=== PATIENT | female | born 1975 | race Caucasian/White ===

== ENCOUNTER → 2016-08-30 | Outpatient (CLI) | payer BC ==
[~2016-08-30] MED LIST: CALC1CAP24 PO; CIPR1TAB11 PO; MULT-506 PO; NAPR1TAB9 PO; OMEG10007 PO
--- NOTE | 2016-08-30 16:26 | MAMMOGRAPHY REPORT ---
BILATERAL DIGITAL SCREENING MAMMOGRAM TOMOSYNTHESIS WITH CAD: 08/30/2016 TECHNIQUE: Breast tomosynthesis in addition to standard 2D mammography was performed. Current study was also evaluated with a Computer Aided Detection (CAD) system. COMPARISON: Comparison is made to exams dated: 08/28/2015 mammogram, 05/29/2014 mammogram, 4 mammogram, and 06/03/2014 ultrasound - [facility]. BREAST COMPOSITION: The tissue of both breasts is heterogeneously dense, which may obscure small ma sses. FINDINGS: No suspicious masses, calcifications, or areas of architectural distortion are noted in e ither breast. There has been no significant interval change compared to prior exams. A biopsy marke r clip is again noted in the left upper outer quadrant. Bilateral benign-appearing calcifications a re not significantly changed. IMPRESSION: ACR BI-RADS CATEGORY 2: BENIGN There is no mammographic evidence of malignancy. A 1 year screening mammogram is recommended. The p atient will receive written notification of the results. Approximately 10% of breast cancers are not detected with mammography. A negative mammographic repor t should not delay biopsy if a clinically suggestive mass is present. Mala Perales M.D. ah/:08/30/2016 15:12:10 Apprentice Instrument Technician: Lori JEAN-BAPTISTE(R)(M), [facility] letter sent: Normal 1/2 BI-RADS Code: ACR BI-RADS Category 2: Benign
== END | disposition home or self-care (01) ==
LOC: C.MAMM 14:37
PROVIDERS: ATTEND Family Medicine
DX: Z12.31 Encounter for screening mammogram for malignant neoplasm of breast (principal)

== ENCOUNTER → 2017-08-31 | Outpatient (CLI) | payer OTHER ==
--- NOTE | 2017-09-01 15:10 | MAMMOGRAPHY REPORT ---
BILATERAL DIGITAL SCREENING MAMMOGRAM TOMOSYNTHESIS WITH CAD: 08/31/2017 CLINICAL HISTORY: Routine screening. TECHNIQUE: Breast tomosynthesis in addition to standard 2D mammography was performed. Current study was also evaluated with a Computer Aided Detection (CAD) system. COMPARISON: Comparison is made to exams dated: 08/28/2015 mammogram, 06/25/2014 mammogram, 06/03/2014 mammogram, 06/03/2014 ultrasound, and 05/29/2014 mammogram - [facility]. BREAST COMPOSITION: The tissue of both breasts is heterogeneously dense, which may obscure small mas ses. FINDINGS: No suspicious masses, calcifications, or areas of architectural distortion are noted in ei ther breast. There has been no significant interval change compared to prior exams. Scattered bilater al benign-appearing calcifications are not significantly changed. A biopsy marker clip is again note d within the left upper outer quadrant. IMPRESSION: ACR BI-RADS CATEGORY 2: BENIGN There is no mammographic evidence of malignancy. A 1 year screening mammogram is recommended. The pa tient will receive written notification of the results. Approximately 10% of breast cancers are not detected with mammography. A negative mammographic report should not delay biopsy if a clinically suggestive mass is present. Mala Perales M.D. /:08/31/2017 15:20:47 Multifocal Button Inspector: Elton URIARTE)(M), [facility] letter sent: Normal 1/2 BI-RADS Code: ACR BI-RADS Category 2: Benign
== END ==
LOC: C.MAMM 14:58
PROVIDERS: ATTEND Family Medicine
DX: Z12.31 Encounter for screening mammogram for malignant neoplasm of breast (principal)

== ENCOUNTER → 2017-09-09 | Outpatient (CLI) | payer OTHER ==
--- NOTE | 2017-09-09 11:38 | DIAGNOSTIC IMAGING REPORT ---
L ELBOW MIN 3 VIEWS ROUTINE CLINICAL HISTORY: EFFUSION, LEFT ELBOW COMPARISON: None. DISCUSSION: The bones and joint spaces appear intact. There is no evidence of fracture, dislocation or bony disease. There is no evidence for soft tissue swelling. IMPRESSION: Negative study. No evidence for effusion by routine imaging criteria. The above report was generated using voice recognition software. It may contain grammatical, syntax or spelling errors. Electronically signed by: Chaparro Gonzalez M.D. 09/09/2017 11:37 AM Dictated Date/Time: 09/09/2017 11:33 AM
== END | disposition home or self-care (01) ==
LOC: C.RAD1850 11:23
PROVIDERS: ATTEND Physician Assistant
DX: M25.422 Effusion, left elbow (principal)

== ENCOUNTER → 2017-10-12 | Outpatient (CLI) | payer OTHER ==
--- NOTE | 2017-10-12 12:25 | DIAGNOSTIC IMAGING REPORT ---
L EXTREMITY NONVASCULAR LIMITED CLINICAL HISTORY: 42 years-old Female presenting with L LEG PAIN AND SWELLING. TECHNIQUE: Real-time grayscale Doppler ultrasound imaging of the left anterolateral thigh was performed for a focused evaluation at the site of clinical concern. Color Doppler ultrasound imaging was also performed. COMPARISON: None. FINDINGS: No sonographic evidence of a mass or fluid collection. No hyperemia. Visualized vasculature is patent. No subcutaneous edema or thickening of the cutis. Normal musculature. IMPRESSION: 1. No sonographic abnormality of the site of clinical concern. Electronically signed by: Moise Bustamante M.D. 10/12/2017 12:24 PM Dictated Date/Time: 10/12/2017 12:23 PM
== END | disposition home or self-care (01) ==
LOC: C.ULTR 11:51
PROVIDERS: ATTEND Family Medicine
DX: M79.605 Pain in left leg (principal); M79.89 Other specified soft tissue disorders

== ENCOUNTER → 2017-10-19 | Outpatient (CLI) | payer OTHER ==
--- NOTE | 2017-10-19 08:02 | DIAGNOSTIC IMAGING REPORT ---
L LOWER EXT NONJOINT WITHOUT CLINICAL HISTORY: 42 years-old Female presenting with L THIGH PAIN,EDEMA, left thigh pain in the lower half. TECHNIQUE: Multisequence, multiplanar MR imaging of the left femur/left upper leg was performed without the use of intravenous contrast. IV contrast: None. COMPARISON: Ultrasound from 10/12/2017. FINDINGS: Localizer images: Unremarkable. Left hip joint and knee joint grossly congruent. Suggestion of focal bony edema in the proximal to mid diaphysis (series 10 image 15 and image 21). No subperiosteal fluid or cortical involvement. Signal intensity changes are subtle though asymmetric to the right femur. No evidence of distention of the trochanteric bursa. No evidence of a left hip or left knee joint effusion. The iliotibial band is grossly intact and normal. Increased signal intensity at the insertion of the hamstring muscle complex origin at the ischial tuberosity, slightly asymmetric to the right. Abnormal signal intensity within the tendons primarily centered within the biceps femoris and semimembranosus. There is also minimal edema suggested within the quadratus femoris muscle. Normal muscle bulk and muscle signal intensity. Visualized portion of the pelvis within normal limits. IMPRESSION: 1. Findings suggestive of tendinosis or partial tear of the left hamstring muscle complex at the tendinous origin at the ischial tuberosity. This probably effects the tendons of the biceps femoris and semimembranous. 2. Strain of the left quadratus femoris muscle. 3. Possible focal bony edema in the proximal to mid diaphysis of the left femur. This could suggest stress response though no periosteal edema is evident. This is equivocal. Consider follow-up to resolution. Electronically signed by: Moise Bustamante M.D. 10/19/2017 8:01 AM Dictated Date/Time: 10/19/2017 7:42 AM
== END | disposition home or self-care (01) ==
LOC: C.MRI 06:43
PROVIDERS: ATTEND Family Medicine
DX: M79.652 Pain in left thigh (principal); R60.9 Edema, unspecified